=== PATIENT | male | born 1985 | race Two or more races ===

== ENCOUNTER 2023-07-26 22:10 | Emergency (ER) | payer SELFPAY ==
[2023-07-26] MEDS ORDERED: ALPRAZolam 0.25 MG Tab PO ONE (22:26)
== END 2023-07-26 23:26 | disposition home or self-care (01) ==
LOC: JD.ED 22:10
DX: F41.9 Anxiety disorder, unspecified (principal); R06.02 Shortness of breath
CPT/HCPCS: 71046; 93005; 99285; A9270; 93010; 99283